=== PATIENT | male | born 1975 | race Caucasian/White ===

== ENCOUNTER 2019-10-10 02:36 | Emergency (ER) | payer OTHER ==
[~2019-10-10] VITALS: Ht 175.3 cm; Wt 79.4 kg
--- NOTE | 2019-10-10 02:39 | NUR ---
PT TAKEN TO BED 7
[2019-10-10 02:40] VITALS: BP 159/109
--- NOTE | 2019-10-10 02:44 | NUR ---
44 Y/O M PRESENTED TO ED WITH C/O LACERATION TO MEDIAL RT INDEX FINGER X30 MINS [employer]IST[employer]. PT REPORTS PUTTING HIS HAND IN THE SINK AND CUTTING IT ON GLASS. BLEEDING CONTROLLED AT THIS TIME. +CMS. PT LAYING FLAT ON BED. BEDRAILX1 UP. WILL CONTINUE TO [facility].
[2019-10-10 02:45] VITALS: BP 159/109
[2019-10-10] MEDS ORDERED: LIDOCAINE/EPI 1% 1:100000 20 ML VIAL INJ ONE ×2 (02:55→03:05)
--- NOTE | 2019-10-10 03:04 | NUR ---
Dr. Robertson examining patient.
[2019-10-10] MEDS ORDERED: BACITRACIN OINT 500 UNITS/GM PKT TP ONE (03:05)
[2019-10-10] MEDS ORDERED: ACETAMINOPHEN EXTRA STRENGTH 500 MG TAB PO ONE (03:05)
--- NOTE | 2019-10-10 03:51 | NUR ---
Patient discharged with v/s stable. Written and verbal after care instructions given and explained. Patient alert, oriented and verbalized understanding of instructions. Ambulatory with steady gait. All questions addressed prior to discharge. ID band removed. Patient advised to follow up with PMD. Rx of keflex, norco, naprosyn given. Patient educated on indication of medication including possible reaction and side effects. Opportunity to ask questions provided and answered.
== END 2019-10-10 03:51 | disposition home or self-care (01) ==
LOC: MED 02:36
DX: S61.210A Laceration without foreign body of right index finger without damage to nail, initial encounter (principal); I10 Essential (primary) hypertension; F17.210 Nicotine dependence, cigarettes, uncomplicated; W25.XXXA Contact with sharp glass, initial encounter; Y93.89 Activity, other specified; Y92.89 Other specified places as the place of occurrence of the external cause; Y99.8 Other external cause status
CPT/HCPCS: 12001; 99283; J2001

== ENCOUNTER 2019-10-16 16:52 | Emergency (ER) | payer OTHER ==
[~2019-10-16] VITALS: Ht 175.3 cm; Wt 79.4 kg
[2019-10-16 17:14] VITALS: BP 137/89
--- NOTE | 2019-10-16 17:25 | NUR ---
44/M PRESENTS TO ED FOR SUTURE REMOVAL. PT WITH APPROX 3CM LACERATION REPAIRED WITH SUTURES ON INSIDE OF R 2ND DIGIT, WITH SURROUNDING REDNESS AND SWELLING, NO DRAINAGE, WAS PLACED 10/10/19. PT AWAKE AND ALERT, SKIN NORMAL COLOR WARM AND DRY, RR EVEN AND UNLABORED. HX HTN RX BP MED
[2019-10-16] MEDS ORDERED: cefTRIAXone 1,000 MG in LIDOCAINE MPF 1% 2.1 ML IM ONE (17:35)
[2019-10-16 17:58] VITALS: BP 137/89
--- NOTE | 2019-10-16 17:59 | NUR ---
Patient discharged with v/s stable. Written and verbal after care instructions given and explained. Patient alert, oriented and verbalized understanding of instructions. Ambulatory with steady gait. All questions addressed prior to discharge. ID band removed. Patient advised to follow up with PMD. Rx of norco/bactrim given. Patient educated on indication of medication including possible reaction and side effects. Opportunity to ask questions provided and answered.
== END 2019-10-16 17:59 | disposition home or self-care (01) ==
LOC: MED 16:52
DX: L03.011 Cellulitis of right finger (principal); S61.210D Laceration without foreign body of right index finger without damage to nail, subsequent encounter; I10 Essential (primary) hypertension; Z48.02 Encounter for removal of sutures; W25.XXXD Contact with sharp glass, subsequent encounter
CPT/HCPCS: 96372; 99283; J0696; J2001

== ENCOUNTER 2019-11-09 21:43 | Emergency (ER) | payer OTHER ==
[~2019-11-09] VITALS: Ht 175.3 cm; Wt 81.6 kg
[2019-11-09 21:46] VITALS: BP 141/97
--- NOTE | 2019-11-09 22:05 | NUR ---
CALLED FOR XRAY NO ANSWER.
--- NOTE | 2019-11-09 23:18 | NUR ---
pt ambulated to bed
--- NOTE | 2019-11-10 00:40 | NUR ---
44 YEAR OLD MALE COMPLAINS OF 8/10 BACK PAIN AFTER SLIPPING AND FALLING LAST NIGHT. PATIENT STATES HE DID NOT HIT HIS HEAD. NO LACERATION, REDNESS, OR SWELLING NOTED ON SITE. BREATHING EVEN AND UNLABORED, PATIENT ALERT AND ORIENTED, SKIN WARM AND DRY. BED IN LOWEST POSITION, LOCKED, BED RAIL UPX1.
--- NOTE | 2019-11-10 00:56 | NUR ---
PATIENT ALERT AND ORIENTED, BREATHING EVEN AND UNLABORED, WILL CONTINUE TO MONITOR.
[2019-11-10] MEDS ORDERED: KETOROLAC 60 MG/2 ML VIAL IM ONE (01:20)
[2019-11-10 01:36] VITALS: BP 135/87
--- NOTE | 2019-11-10 01:37 | NUR ---
DR ANNA LESLIE PATIENT. PATIENT AMB WITH STEADY GAIT TO LOBBY.
== END 2019-11-10 01:36 | disposition home or self-care (01) ==
LOC: MED 21:43
DX: S39.012A Strain of muscle, fascia and tendon of lower back, initial encounter (principal); I10 Essential (primary) hypertension; W01.0XXA Fall on same level from slipping, tripping and stumbling without subsequent striking against object, initial encounter; Y93.89 Activity, other specified; Y92.524 Gas station as the place of occurrence of the external cause; Y99.8 Other external cause status
CPT/HCPCS: 72100; 96372; 99283; J1885

== ENCOUNTER 2020-11-07 21:33 | Emergency (ER) | payer OTHER ==
[~2020-11-07] VITALS: Ht 175.3 cm; Wt 90.7 kg
[2020-11-07 21:40] VITALS: BP 133/83
--- NOTE | 2020-11-07 21:43 | NUR ---
TO LOBBY A/W BED AMBULATORY
[2020-11-07 21:44] VITALS: BP 133/83
--- NOTE | 2020-11-07 21:46 | NUR ---
SEEN AND EXAMINED BY KEELY WITH ORDERS AND CARRIED OUT
== END 2020-11-07 22:04 | disposition home or self-care (01) ==
LOC: MED 21:33
DX: M25.571 Pain in right ankle and joints of right foot (principal); M25.471 Effusion, right ankle; M79.602 Pain in left arm; I10 Essential (primary) hypertension; V49.9XXA Car occupant (driver) (passenger) injured in unspecified traffic accident, initial encounter; Y93.89 Activity, other specified; Y92.89 Other specified places as the place of occurrence of the external cause; Y99.8 Other external cause status
CPT/HCPCS: 99283